=== PATIENT | female | born 1980 | race Caucasian/White ===

== ENCOUNTER 2019-05-23 17:06 | Emergency (ER) | payer MEDICAID ==
[~2019-05-23] VITALS: Ht 177.8 cm; Wt 78.5 kg
[2019-05-23 17:15] VITALS: Ht 177.8 cm; Wt 78.5 kg
[2019-05-23 19:03] LABS: BASOPHIL % 0.2 % (0-2); PLATELET COUNT 292 x10^3mcL (130-400)
[2019-05-23 19:03] LABS: UA SPECIFIC GRAVITY 1.025 (1.005-1.035); microscopic required? YES; urine erythrocyte 3+ (NEGATIVE)
[2019-05-23 19:16] LABS: CALCIUM 8.5 mg/dL (8.5-10.1); CARBON DIOXIDE 24.5 mmol/L (21-32); CHLORIDE SERUM 106 mmol/L (98-107); CREATININE SERUM 0.9 mg/dL (0.6-1.0); GFR1 > 60 mL/min; GLUCOSE SERUM 121 mg/dL (74-106); POTASSIUM SERUM 3.5 mmol/L (3.5-5.1); SODIUM SERUM 141 mmol/L (136-145)
[2019-05-23 19:21] LABS: ALBUMIN 3.9 g/dL (3.4-5.0); ALKALINE PHOSPHATASE 50 U/L (46-116); ALT/SGPT 23 U/L (14-59); AST/SGOT 12 U/L (15-37); BILIRUBIN TOTAL 0.5 mg/dL (0.20-1.00); TOTAL PROTEIN, SERUM 7.4 g/dL (6.4-8.2); URIC ACID 3.8 mg/dL (2.6-6.0)
[2019-05-23 21:39] VITALS: BP 125/68
== END 2019-05-23 21:39 | disposition home or self-care (01) ==
LOC: ED 17:06
PROVIDERS: Emergency Medicine
DX: N20.0 Calculus of kidney (principal); N39.0 Urinary tract infection, site not specified; Z88.0 Allergy status to penicillin
CPT/HCPCS: J0696; J1885; J2405; J7030; J7060

== ENCOUNTER 2019-12-05 14:46 | Inpatient (IN) | payer MEDICAID ==
[~2019-12-05] VITALS: Ht 172.7 cm; Wt 81.6 kg
[2019-12-05 14:49] VITALS: Ht 172.7 cm; Wt 81.6 kg
[2019-12-05 15:08] LABS: BASOPHIL % 0.4 % (0-2); PLATELET COUNT 341 x10^3mcL (130-400); RED CELL DISTRIBUTION WIDTH 14.1 % (11.5-14.5)
[2019-12-05 16:00] LABS: microscopic required? NO
[2019-12-05 16:05] LABS: urine erythrocyte NEGATIVE (NEGATIVE)
[2019-12-05 21:16] VITALS: BP 111/67
[2019-12-06 05:25] VITALS: BP 99/52
[2019-12-06 06:47] LABS: BASOPHIL % 0.4 % (0-2); PLATELET COUNT 272 x10^3mcL (130-400); RED CELL DISTRIBUTION WIDTH 14.3 % (11.5-14.5)
[2019-12-06 06:51] LABS: CALCIUM 8.5 mg/dL (8.5-10.1); CARBON DIOXIDE 23.3 mmol/L (21-32); CHLORIDE SERUM 106 mmol/L (98-107); CREATININE SERUM 0.7 mg/dL (0.6-1.0); GFR1 > 60 mL/min; GLUCOSE SERUM 91 mg/dL (74-106); PHOSPHOROUS 2.5 mg/dL (2.5-4.9); POTASSIUM SERUM 3.9 mmol/L (3.5-5.1); SODIUM SERUM 138 mmol/L (136-145)
[2019-12-06] MEDS ORDERED: TYL325 PO (07:15)
[2019-12-06 08:33] VITALS: BP 99/52
[2019-12-06 09:03] VITALS: BP 103/56
== END 2019-12-06 10:07 | disposition home or self-care (01) | DRG 566 ==
LOC: ED 14:46 → MU 17:35
PROVIDERS: Emergency Medicine; ADMIT Student in an Organized Health Care Education/Training Program
DX: O00.101 Right tubal pregnancy without intrauterine pregnancy (principal); E66.9 Obesity, unspecified; R11.2 Nausea with vomiting, unspecified; Z68.28 Body mass index [BMI] 28.0-28.9, adult
CPT/HCPCS: 82962; G0378; J7030; Q0092

== ENCOUNTER 2019-12-07 13:28 | Emergency (ER) | payer MEDICAID ==
[~2019-12-07] VITALS: Ht 172.7 cm; Wt 80.7 kg
[~2019-12-07 13:28] MED LIST: TYL325 PO
[2019-12-07 13:48] VITALS: Ht 172.7 cm; Wt 80.7 kg
[2019-12-07 16:12] VITALS: BP 105/71
== END 2019-12-07 16:12 | disposition home or self-care (01) ==
LOC: ED 13:28
DX: O03.9 Complete or unspecified spontaneous abortion without complication (principal); Z3A.01 Less than 8 weeks gestation of pregnancy; Z98.51 Tubal ligation status; Z88.0 Allergy status to penicillin
CPT/HCPCS: 36415